=== PATIENT | female | born 1970 | race Caucasian/White ===

== ENCOUNTER 2019-08-27 11:04 | Inpatient (IN) | payer OTHER ==
[2019-08-27 11:39] VITALS: BMI 38.0
--- NOTE | 2019-08-27 12:29 | HP ---
CIWA Score Nausea/Vomitin-No Nausea/No Vomiting Muscle Tremors: None Anxiety: 4-Mod. Anxious/Guarded Agitation: 4-Moderately Restless Paroxysmal Sweats: 4-Forehead w/Sweat Beads Orientation: 0-Oriented Tacttile Disturbances: 0-None Auditory Disturbances: 0-None Visual Disturbances: 0-None Headache: 0-None Present CIWA-Ar Total Score: 12 - Admission Criteria OASAS Guidelines: Admission for Medically Managed Detox: Requires at least one of the followin. CIWA greater than 12 2. Seizures within the past 24 hours 3. Delirium tremens within the past 24 hours 4. Hallucinations within the past 24 hours 5. Acute intervention needed for co occurring medical disorder 6. Acute intervention needed for co occurring psychiatric disorder 7. Severe withdrawal that cannot be handled at a lower level of care (continued vomiting, continued diarrhea, abnormal vital signs) requiring intravenous medication and/or fluids 8. Admission ROS [facility] - [facility] Allergies/Adverse Reactions: Allergies Allergy/AdvReac Type Severity Reaction Status Date / Time Penicillins Allergy Verified 08/27/19 11:23 History of Present Illness: 49 y/o F with history of crack cocaine and alcohol abuse since she was 15 yrs old. Pt admits to drinking a fifth of vodka regularly with last drink being 2 days ago. Pt admits to being cocaine free for the past 10 yrs until 3 weeks ago. She explains that she has been using 300$ worth of cocaine daily (about 30 bags a day). Pt denies any use of needles. No history of blackout or seizure with alcohol withdrawal According to the pt she has decided to come into the rehab because she wants to change her life around. With her last drink being 2 days ago, she explains that she is beginning to feel restless, anxious, and desires to drink.She denies any headache, dizziness, palpitation, diaphoresis. PMH: HIV for 20+ years ( on biktarvy), DM for 3-4 yrs ( on metformin 1000 mg BID , insulin), HTN Psychiatric HX: bipolar ( not on any medication) PSH: hysterectomy Social HX: 10 cigarettes a day for about 15-20 yrs cocaine and alcohol since 15 y/o ROS: negative for all Plan: valium detox home dosed insulin for DM - Ebola screening Have you traveled outside of the country in the last 21 days: No Have you had contact with anyone from an Ebola affected area: No Do you have a fever: No Patient History - Smoking Cessation Smoking history: Current every day smoker Initiated information on smoking cessation: Yes 'Breaking Loose' booklet given: 08/27/19 - Substances abused Alcohol Substance route: Oral Frequency: Daily Amount used: 5th of vodka Age of first use: 13 Date of last use: 08/25/19 Crack Substance route: Smoking Frequency: Daily Amount used: $300 Age of first use: 15 Date of last use: 08/25/19 Admission Physical Exam [facility] - Vital Signs Vital Signs: Vital Signs - 24 hr 08/27/19 11:23 Temperature 97.5 F L Pulse Rate 93 H Respiratory 16 Rate Blood Pressure 145/85 - Diagnostic (1) Alcohol withdrawal Current Visit: Yes Status: Acute Cleared for Admission [facility] - Detox or Rehab [facility] Level of Care: Medically Supervised Breathalyzer - Breathalyzer Breathalyzer: 0 Urine Drug Screen - Test Device Lot number: [id number] Expiration date: 05/08/21 - Control Is test valid?: Yes - Results Drug screen NEGATIVE: No Urine drug screen results: [facility] Admission - Rehab Decision to Admit Inpatient rehab admission?: No
--- NOTE | 2019-08-27 13:09 | PN ---
Teaching Attending Note Name of Resident: Shamika Hidalgo ATTENDING PHYSICIAN STATEMENT I saw and evaluated the patient. I reviewed the resident's note and discussed the case with the resident. I agree with the resident's findings and plan as documented. SUBJECTIVE:49 y/o female pt here for etoh and cocaine use , reports 1/5 vodka/ day , latest use 2 days ago , denies seizures, blackouts , falls while intoxicated. cocaine : 300 $ /day PMHX : HIV for 20+ years , DM dx 3-4 yrs ago , HTN Psychiatric HX: bipolar ( not on any medication) PSHx: hysterectomy OBJECTIVE: wnwd Vital Signs - 24 hr 08/27/19 08/27/19 11:23 13:41 Temperature 97.5 F L 97.0 F L Pulse Rate 93 H 84 Respiratory 16 18 Rate Blood Pressure 145/85 131/68 ASSESSMENT AND PLAN: AUD - Valium detox insulin dose confirmed w/ pharmacy of record and discussed w/ pharmacist onsite ([facility] )
[2019-08-27] MEDS ORDERED: MAG HYDROX/AL HYDROX/SIMETH 30 ML UNIT-DOSE CUP PO PRN (13:10)
[2019-08-27] MEDS ORDERED: MENTHOL/PHENOL 1 EACH UD MM PRN (13:10)
[2019-08-27] MEDS ORDERED: hydrOXYzine PAMOATE 25 MG CAPSULE (FP) PO PRN (13:10)
[2019-08-27] MEDS ORDERED: MELATONIN 5 MG TABLETS PO PRN (13:10)
[2019-08-27] MEDS ORDERED: IBUPROFEN 400 MG TABLET (FP) PO PRN (13:10)
[2019-08-27] MEDS ORDERED: BISMUTH SUBSALICYLATE 524 MG/30 ML UD PO PRN (13:10)
[2019-08-27] MEDS ORDERED: MAGNESIUM HYDROX 2400MG/30ML ORAL SUSPENSION 30 ML CUP PO PRN (13:10)
[2019-08-27] MEDS ORDERED: MAGNESIUM CITRATE 300 ML BOTTLE PO PRN (13:10)
[2019-08-27] MEDS ORDERED: ACETAMINOPHEN 325 MG TABLET (FP) PO PRN ×2 (13:10)
[2019-08-27] MEDS ORDERED: diazePAM 5 MG TABLET PO PRN (13:12)
[2019-08-27] MEDS ORDERED: amLODIPine BESYLATE 10 MG TABLET (FP) PO SCH (14:00)
[2019-08-27] MEDS: diazePAM 5 MG TABLET PO SCH ×2 (14:05→21:22)
[2019-08-27] MEDS: ALBUTEROL SO4 8 GM HFA INHALER IH PRN ×2 (14:09→18:19)
[2019-08-27] MEDS: INSULIN SLIDING SCALE (NOVOLOG) 1 VIAL SQ SCH ×2 (16:42→21:45)
[2019-08-27] MEDS: metFORMIN HCL 500 MG TABLET (FP) PO SCH (16:50)
[2019-08-27] MEDS ORDERED: THIAMINE HCL 100 MG TABLET (FP) PO SCH (22:00)
[2019-08-27] MEDS ORDERED: INSULIN (LEVEMIR) 100 UNITS/ML UNITS SQ SCH (22:00)
[2019-08-27] MEDS ORDERED: ATORVASTATIN CA 40 MG TABLET (FP) PO SCH (22:00)
[2019-08-28] MEDS: diazePAM 5 MG TABLET PO SCH (05:44)
[2019-08-28 06:15] VITALS: BP 143/93; PULSE 87; TEMP 96.9
[2019-08-28] MEDS: metFORMIN HCL 500 MG TABLET (FP) PO SCH (06:48)
[2019-08-28] MEDS: INSULIN SLIDING SCALE (NOVOLOG) 1 VIAL SQ SCH (06:51)
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
[2019-08-28] MEDS ORDERED: PRENATAL VITAMINS W/ FOLIC ACID TABLET (FP) PO SCH (10:00)
[2019-08-28] MEDS ORDERED: PATIENT'S OWN MEDICATION (NON-FORMULARY) (Bictegrav/Emtricit/Tenofov Ala 1 EACH) PO SCH (10:00)
[2019-08-29] MEDS ORDERED: diazePAM 5 MG TABLET PO SCH (06:00)
[2019-08-30] MEDS ORDERED: diazePAM 5 MG TABLET PO ONE (06:00)
== END 2019-08-28 06:40 | disposition home or self-care (01) | DRG 774 ==
LOC: YASAS 11:04 → Y3N 13:09
PROVIDERS: ADMIT Allergy & Immunology; ATTEND Allergy & Immunology
PROC: HZ2ZZZZ Detoxification Services for Substance Abuse Treatment (ICD-10-PCS; principal; 2019-08-27)
DX: F10.230 Alcohol dependence with withdrawal, uncomplicated (principal); F14.20 Cocaine dependence, uncomplicated; F31.9 Bipolar disorder, unspecified; Z21 Asymptomatic human immunodeficiency virus [HIV] infection status; I10 Essential (primary) hypertension; E78.5 Hyperlipidemia, unspecified; E11.9 Type 2 diabetes mellitus without complications; Z79.4 Long term (current) use of insulin; Z90.710 Acquired absence of both cervix and uterus; Z88.0 Allergy status to penicillin
CPT/HCPCS: 81025; 82962